=== PATIENT | male | born 1965 | race Hispanic/Latino ===

== ENCOUNTER 2023-08-07 09:13 | Emergency (ER) | payer BC, OTHER ==
[~2023-08-07] VITALS: Ht 170.2 cm; Wt 87.1 kg
[2023-08-07 09:49] LABS: BASOPHILS # (AUTO) 0.02 K/uL (0.00-0.20); BASOPHILS % (AUTO) 0.3 % (0.0-5.0); EOSINOPHILS # (AUTO) 0.04 K/uL (0.00-0.70); EOSINOPHILS % (AUTO) 0.6 % (0.0-8.0); HEMATOCRIT 47.1 % (42-54); IMMATURE GRANULOCYTE ABSOLUTE 0.05 K/uL (0-1); LYMPHOCYTES % (AUTO) 29.9 % (21.0-51.0); MEAN CORPUSCULAR HEMOGLOBIN 34.4 pg (27.0-33.0); MEAN CORPUSCULAR VOLUME 98.1 fL (79-99); MONOCYTES # (AUTO) 0.5 K/uL (0.1-1.0); MONOCYTES % (AUTO) 7.2 % (3.0-13.0); NEUTROPHILS # (AUTO) 4.1 K/uL (1.8-7.7); NEUTROPHILS % (AUTO) 61.3 % (40.0-77.0); PLATELET COUNT (AUTO) 228 K/uL (130-400); RED CELL DISTRIBUTION WIDTH 12.7 % (11.0-15.5); WHITE BLOOD COUNT (AUTO) 6.7 K/uL (4.8-10.8)
[2023-08-07] MEDS: LACTATED RINGERS 1000ML 1,000 ML IV ONE (09:51)
[2023-08-07 09:58] LABS: POTASSIUM 3.9 mmol/L (3.5-5.1)
[2023-08-07 10:03] LABS: ALBUMIN 3.5 g/dL (3.5-5.0); BILIRUBIN,TOTAL 0.6 mg/dL (0.2-1.0); TOTAL PROTEIN, SERUM 6.9 g/dL (6.0-8.3)
[2023-08-07 10:12] LABS: HEMOGLOBIN A1C 6.7 % (4.0-6.0)
[2023-08-07 10:22] LABS: B-TYPE NATRIURETIC PEPTIDE 8 pg/mL (0-100)
[2023-08-07 10:52] LABS: APPEARANCE,URINE CLEAR (CLEAR); BILIRUBIN,URINE NEGATIVE (NEGATIVE); COLOR,URINE YELLOW (YELLOW); GLUCOSE, URINE (UA) NEGATIVE (NEGATIVE); KETONES,URINE NEGATIVE (NEGATIVE); LEUKOCYTE ESTERASE ,URINE NEGATIVE Leu/uL (NEGATIVE); NITRATE,URINE NEGATIVE (NEGATIVE); OCCULT BLOOD,URINE NEGATIVE (NEGATIVE); PH,URINE 5.5 (5.0-8.0); PROTEIN,URINE NEGATIVE (NEGATIVE); UROBILINOGEN,URINE 0.2 mg/dL (0.2-1.0)
[2023-08-07 10:54] LABS: ADD UA MICROSCOPIC NO
[2023-08-07] MEDS ORDERED: 1/2 NS 1000ML 1,000 ML IV SCH (11:00)
[2023-08-07] MEDS ORDERED: LEVOFLOXACIN 500 MG/D5W 100 ML 100 ML IV SCH (11:00)
[2023-08-07 11:47] VITALS: BP 138/68; PULSE 87; RESP 15; O2SAT 97
[2023-08-07] MEDS ORDERED: FAMOTIDINE 20MG TAB PO SCH (21:00)
[2023-08-07] MEDS ORDERED: SOLU-MEDROL 125MG VIAL IVP SCH (21:00)
== END 2023-08-07 12:33 | disposition home or self-care (01) ==
LOC: EDH 09:13
DX: R55 Syncope and collapse (principal); I10 Essential (primary) hypertension
CPT/HCPCS: 99284; 96360; 71045; 96361; 80061; 83036; 84484 ×2; 80053; 83880; 85025; 85378; 81003; 36415; 93005; J7120